=== PATIENT | female | born 1960 | race Caucasian/White ===

== ENCOUNTER → 2016-12-31 | Outpatient (CLI) | payer OTHER ==
--- NOTE | 2016-12-31 14:00 | KCIC ---
Arthritic series HISTORY: Joint pain. Rheumatoid arthritis. COMPARISON: None Single view lateral flexion cervical spine. Small anterior osteophytes at C4-C5 and C5-C6. No aggressive bone destruction or erosion. No prevertebral soft tissue swelling. Alignment appears intact. Bilateral oblique single view feet No evidence of bone erosion or osteophytosis. Joint spaces and alignment appear intact. Bilateral single view AP hand No evidence of bone erosion or bone production. Joint spaces and alignment are intact. On the right, a small ossicle is identified just lateral to the trapezium and proximal to the base of first metatarsal, could represent accessory ossification center or an old fracture, and appears chronic. Bilateral standing AP single view knee Medial and lateral joint compartment height is preserved. No bone erosion or bone production. No apparent soft tissue abnormality. Single view AP pelvis upright Joint spaces appear grossly intact. No bone erosion or bone production. No apparent soft tissue abnormality. IMPRESSION: 1. 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 2. No radiographic findings of an inflammatory or erosive arthropathy. Electronically signed by: Arun Caceres MD (12/31/2016 1:56 PM)
== END | disposition home or self-care (01) ==
LOC: KCIC 12:08
PROVIDERS: ATTEND Internal Medicine Rheumatology
DX: M47.892 Other spondylosis, cervical region (principal); M25.571 Pain in right ankle and joints of right foot; M25.572 Pain in left ankle and joints of left foot; M05.79 Rheumatoid arthritis with rheumatoid factor of multiple sites without organ or systems involvement; M79.642 Pain in left hand; M79.641 Pain in right hand; M25.561 Pain in right knee; M25.562 Pain in left knee
CPT/HCPCS: 72040; 72170; 73120; 73565; 73620